=== PATIENT | female | born 1955 | race Caucasian/White ===

== ENCOUNTER 2022-07-20 09:01 | Outpatient (RCR) | payer MEDICARE, SELFPAY ==
--- NOTE | 2022-06-20 07:46 | URNOTE ---
Received request for [employer] ([id number]). Per [facility] Medical Injectable drug authorization list, prior authorization is not required.
[2022-07-20 09:36] LABS: Albumin* 4.4 g/dL (3.3-5.0); Chloride* 106 mmol/L (96-114); Sodium* 143 mmol/L (135-149)
[2022-07-20 09:37] LABS: Potassium* 4.3 mmol/L (3.6-5.1)
[2022-07-20 09:39] LABS: Alanine Aminotransferase* 20 U/L (4-35); Alkaline Phosphatase* 87 U/L (40-150); Aspartate Amino Transferase* 21 U/L (12-35); Bilirubin Total* 0.9 mg/dL (0.1-1.5); Blood Urea Nitrogen* 17 mg/dL (7-30); Carbon Dioxide* 26 mmol/L (20-32); Creatinine* 0.7 mg/dL (0.5-1.5); Estimated Glomerular Filt Rate 95 ml/min; Glucose* 113 mg/dL (60-115); Total Protein* 7.2 g/dL (6.0-8.3)
[2022-07-20 09:40] LABS: Calcium* 9.5 mg/dL (8.4-10.6)
== END 2023-01-16 23:59 | disposition home or self-care (01) ==
LOC: CCIC 09:01
PROVIDERS: PCP Family Medicine; Referring Provider Family Medicine; Visit Provider Nurse Practitioner Family
DX: C50.911 Malignant neoplasm of unspecified site of right female breast (principal); Z17.0 Estrogen receptor positive status [ER+]; Z51.81 Encounter for therapeutic drug level monitoring; Z79.811 Long term (current) use of aromatase inhibitors; M85.80 Other specified disorders of bone density and structure, unspecified site
CPT/HCPCS: 36415; 80053; 99212; 99215

== ENCOUNTER 2022-08-01 09:01 | Outpatient (CLI) | payer MEDICARE, SELFPAY ==
--- NOTE | 2022-08-01 09:15 | CRLHL7_ITS ---
For Patients: As a result of the Cures Act, medical imaging exams and procedure reports are released immediately into your electronic medical record. You may view this report before your referring provider. If you have questions, please contact your health care provider. RIGHT BREAST ULTRASOUND, 08/01/2022 INDICATION: New onset palpable abnormality along the medial aspect of the RIGHT breast implant. History of RIGHT mastectomy and RIGHT axillary lymph node dissection. History of radiation therapy. Breast implant placed approximately 3 years ago. Follow-up. TECHNIQUE: Directed ultrasound of the superior all medial RIGHT breast implant. COMPARISON: No comparisons. FINDINGS: The breast implant does appear to be intact. There is some undulation of the breast implant capsule medially. No definite pericapsular calcification. No mass identified. These findings were discussed briefly with the patient. The patient will also undergo a chest CT today which may provide additional useful information. IMPRESSION: 1. RIGHT breast implant. No implant rupture. 2. No mass or abnormality along the superomedial or medial aspect of the RIGHT breast implant. These findings were discussed briefly with the patient. A lay language report of this examination will be provided to the patient. ACR not applicable. Dictated by: Rogelio Casper MD @08/01/2022 9:55:38 AM [email or web address] RD/Dictated by: Rogelio Casper MD @ 08/01/2022 9:55:00 AM (Electronically Signed)
--- NOTE | 2022-08-01 11:00 | CRLHL7_ITS ---
For Patients: As a result of the Century Cures Act, medical imaging exams and procedure reports are released immediately into your electronic medical record. You may view this report before your referring provider. If you have questions, please contact your health care provider. INDICATION: Monitoring of a high risk breast cancer with positive lymph node. TECHNIQUE: Contrast-enhanced chest CT. 75 cc nonionic Isovue-370 administered. COMPARISON : Correlation is made with a PET/CT scan from January 07, 2020. FINDINGS: Surgically absent right breast. Postsurgical change right axilla. There is a breast implant with an internal fold. No olivia implant lesion or mass. No thoracic lymphadenopathy. Possible biopsy clip left breast. The left breast is otherwise negative. The included thyroid gland is unremarkable. The trachea and mainstem bronchi are patent and clear. There is no evidence for thoracic lymphadenopathy. Curvilinear fibrosis and/or atelectasis right upper lobe of the lung likely postradiation in nature. Both lungs are otherwise clear. No pneumothoraces nodules or infiltrates. There are no pleural or pericardial effusions. Images of the upper abdomen demonstrate normal adrenal glands. No splenomegaly. No definite hydronephrosis although neither kidney is fully or optimally included. The visualized portion of the liver and gallbladder are unremarkable. The included skeleton is negative for lytic or blastic metastatic disease. There is no evidence for fractures. Mild degenerative change of the lower thoracic/upper lumbar spine. IMPRESSION: 1. Postsurgical change from a right mastectomy. Postsurgical change from right axillary lymph node dissection. Minor post radiation change right upper lobe of the lung. 2. No evidence for recurrent or metastatic disease in the chest. 3. The included skeleton is unremarkable except for mild degenerative change of the lower thoracic/upper lumbar spine. 4. No abnormality about the right breast implant. No subcutaneous nodule. Please note that all CT scans at this facility use dose modulation, iterative reconstruction, and/or weight-based dosing when appropriate to reduce radiation dose to as low as reasonably achievable. Dictated by Rogelio Casper MD @ 08/01/2022 11:10:32 AM (Electronically Signed)
--- NOTE | 2022-08-02 16:59 | ONC.NURNOTE ---
Patient called after Dr. Cleveland reviewed Right breast ultrasound and CT and let her know that both images showed no evidence of recurrent or metastatic breast cancer. Patient very relieved
== END 2022-08-01 09:02 | disposition home or self-care (01) ==
LOC: US 09:02
PROVIDERS: PCP Family Medicine; Visit Provider Nurse Practitioner Family
DX: N63.10 Unspecified lump in the right breast, unspecified quadrant (principal); R59.9 Enlarged lymph nodes, unspecified; Z85.3 Personal history of malignant neoplasm of breast; C50.919 Malignant neoplasm of unspecified site of unspecified female breast
CPT/HCPCS: 71260; 76642; Q9967

== ENCOUNTER 2023-03-07 13:28 | Outpatient (CLI) | payer MEDICARE, SELFPAY ==
--- NOTE | 2023-03-07 13:30 | CRLHL7_ITS ---
For Patients: As a result of the Century Cures Act, medical imaging exams and procedure reports are released immediately into your electronic medical record. You may view this report before your referring provider. If you have questions, please contact your health care provider. DXA BONE MINERAL DENSITY STUDY Current height (in): 67.0. Weight (lb): 190.0. Menopause age: 52. Ethnicity: White. Reason for exam: Osteopenia. History of breast cancer. 1. Have you had a previous hip or vertebral fracture? No. 2. Have you had any fractures during your adult life which did not result from significant trauma (e.g., auto accident)? No. 3. Did either of your parents have a hip fracture? No. 4. Do you smoke? No. 5. Have you ever taken Glucocorticoids? No. 6. Do you have rheumatoid arthritis? No. 7. Do you have secondary osteoporosis? No. 8. Do you drink 3 or more alcoholic drinks per day? No. 9. Are you being treated for osteoporosis? No. 10. Have you ever taken any of the following medications: Actonel, Evista, Fosamax, Miacalcin, Reclast, Boniva, Forteo, HRT (i.e. estrogen/hormone therapy), Protelos, Prolia, Vitamin D, Calcium, other ??? please specify. ANSWER: Yes, vitamin D, calcium. 11. Do you have any of the following medical conditions: Anorexia or bulimia, asthma or emphysema, end stage renal disease, hyperparathyroidism, any seizure disorders, cancer, inflammatory bowel diseases, hysterectomy, other ??? please specify. ANSWER: Yes, cancer. 12. What was your maximum height (inches)? 67. 13. Do you perform weight bearing exercise regularly? No. 14. Do you regularly consume dairy products? No. 15. Do you drink caffeinated beverages? Yes. 16. At what age did your period start? 13. 17. Are you premenopausal? No. 18. How many full term pregnancies have you had? 1. 19. Have you ever missed your period for more than 6 months in a row (not including or menopause)? No. TECHNIQUE: Bone mineral density study was performed using the [employer]. FINDINGS: The results of the study expressed as bone mineral density (BMD) are as follows: Lumbar spine L1 to L4: BMD: 1.047 g/cm2. T-score: 0.0. Z-score: 2.0. Neck Left: BMD: 0.666 g/cm2. T-score: -1.6. Z-score: 0.0. Right: BMD: 0.719 g/cm2. T-score: -1.2. Z-score: 0.5. Total Left: BMD: 0.781 g/cm2. T-score: -1.3. Z-score: 0.1. Right: BMD: 0.812 g/cm2. T-score: -1.1. Z-score: 0.3. IMPRESSION: Osteopenia. *Comparison exams done prior to 02/2020 were performed on different unit, [employer]. COMPARISON: Compared with scan of 12/21/2020, the bone mineral density has increased by 2.5 percent at the spine. No change in the hips. FRAX 10-year Fracture Risk Major Osteoporotic Fracture: 9.6 percent Hip Fracture: 1.3 percent Reported Risk Factors: [place] () Neck BMD = 0.666, BMI = 29.8 Alvin Damon M.D. Diagnostic Radiologist [email or web address] Transcribed: 9:30 am DW/Dictated by: Alvin Damon MD @ 03/08/2023 6:28:00 AM (Electronically Signed)
== END 2023-03-07 13:29 | disposition home or self-care (01) ==
LOC: RAD 13:28
PROVIDERS: PCP Family Medicine; Visit Provider Nurse Practitioner Family
DX: M85.80 Other specified disorders of bone density and structure, unspecified site (principal); Z51.81 Encounter for therapeutic drug level monitoring; Z79.811 Long term (current) use of aromatase inhibitors
CPT/HCPCS: 77080

== ENCOUNTER 2023-03-28 07:55 | Outpatient (CLI) | payer MEDICARE, SELFPAY ==
--- NOTE | 2023-03-28 08:15 | CRLHL7_ITS ---
For Patients: As a result of the Century Cures Act, medical imaging exams and procedure reports are released immediately into your electronic medical record. You may view this report before your referring provider. If you have questions, please contact your health care provider. BILATERAL SCREENING MAMMOGRAM WITH COMPUTER-AIDED DETECTION AND TOMOSYNTHESIS TECHNIQUE: CC and MLO views were obtained. These mammographic images have been obtained using full-field digital technique. These mammographic images were interpreted with the benefit of computer-aided detection. Breast Tomosynthesis was used in this interpretation. COMPARISON FILM: 02/01/22, 12/21/20, 11/27/19. FINDINGS: The breasts are heterogeneously dense, which may obscure small masses IMPRESSION: There is no radiographic evidence for malignancy. ASSESSMENT: BI-RADS Category 2: Benign RECOMMENDATION: Routine screening mammogram in 1 year. A lay language report of this examination will be provided to the patient. Alvin Damon M.D. Diagnostic Radiologist [email or web address] LANCE/ronel Transcribed: 5:04 p.suleman rodney/Dictated by: Alvin Damon MD @ 03/28/2023 12:56:00 PM (Electronically Signed)
== END 2023-03-28 07:56 | disposition home or self-care (01) ==
LOC: MAMMO 07:55
PROVIDERS: PCP Family Medicine; Visit Provider Nurse Practitioner Family
DX: Z12.31 Encounter for screening mammogram for malignant neoplasm of breast (principal); R92.2 Inconclusive mammogram
CPT/HCPCS: 77063; 77067

== ENCOUNTER 2023-04-08 09:53 | Outpatient (RCR) | payer MEDICARE, SELFPAY ==
--- NOTE | 2023-02-05 16:06 | ONC.NURNOTE ---
Patient called office stating that her pharmacy has been trying to get ahold of us to refill her letrozole. No refill requests were found, but request was placed with [employer] to address tomorrow since oncologist is done for the day. Patient aware. She is also questioning her need for a dexa scan, there is an order in the computer so patient was instructed to talk with radiology to get this scheduled. She scheduled her mammogram for in March/t . Her 6 month follow up was scheduled two months late so that her mammo can be reviewed per her request. Patient scheduled for 04/08/2023.
== END 2023-10-05 23:59 | disposition home or self-care (01) ==
LOC: CCIC 09:53
PROVIDERS: PCP Family Medicine; Referring Provider Family Medicine; Visit Provider Internal Medicine Hematology & Oncology
DX: C50.911 Malignant neoplasm of unspecified site of right female breast (principal); Z17.0 Estrogen receptor positive status [ER+]; Z79.811 Long term (current) use of aromatase inhibitors; M85.80 Other specified disorders of bone density and structure, unspecified site; Z90.11 Acquired absence of right breast and nipple
CPT/HCPCS: 99212; 99214

== ENCOUNTER 2023-10-14 10:14 | Outpatient (RCR) | payer MEDICARE, SELFPAY | END 2024-04-11 23:59 | disposition home or self-care (01) | LOC: CCIC 10:14 | PROVIDERS: PCP Family Medicine; Referring Provider Family Medicine; Visit Provider Physician Assistant | DX: C50.911 Malignant neoplasm of unspecified site of right female breast (principal); Z17.0 Estrogen receptor positive status [ER+]; Z79.811 Long term (current) use of aromatase inhibitors; Z90.11 Acquired absence of right breast and nipple; M85.80 Other specified disorders of bone density and structure, unspecified site | CPT/HCPCS: 99214; G0463 ==

== ENCOUNTER 2024-06-05 11:14 | Outpatient (CLI) | payer MEDICARE, SELFPAY ==
--- OUTSIDE RECORDS SUMMARY | 2024-06-05 11:17 | XMS_ITS | Clinical Summary ---
Author Organization [facility] Address [place], [place] [address] Care Team Providers Care Sales Center Manager Name Role Phone Marla Islas MD Primary Care Provider + Allergies Active Allergy Reactions Criticality Noted Date Comments Adhesive Rash 07/03/2019 Latex *Unknown 07/03/2019 Sulfa (Sulfonamide Antibiotics) *Unknown 06/23 Medications Medication Sig Dispensed Refills Start Date End Date Status letrozole (FEMARA) 2.5 mg tablet Take 2.5 mg by mouth once daily. Active Social History Tobacco Use Types Packs/Day Years Used Date Smoking Tobacco: Never Assessed Sex and Gender Information Value Date Recorded Sex Assigned at Not on file Gender Identity Not on file Sexual Orientation Not on file Obstetrics History Last Filed Vital Signs Vital Sign Reading Time Taken Comments Blood Pressure 141/74 07/13/2019 12:45 PM CDT Pulse 61 07/13/2019 12:45 PM CDT Temperature 36.6 ??C (97.9 ??F) 07/13/2019 9:33 AM CD T Respiratory Rate 16 07/13/2019 12:45 PM CDT Oxygen Saturation 99% 07/13/2019 12:45 PM CDT Inhaled Oxygen Concentration - - Weight - - Height - - Body Mass Index - - Plan of Treatment Health Maintenance Due Date Last Done Comments Tdap 1966 Depression screening for age 12+ 1967 BMI (ht and wt on same day) for age 18+ 1973 Hepatitis C screening for age 18-79 1973 Tetanus booster 1975 Colonoscopy through age 75 2000 Lipids for age 45-75 2000 Mammogram for age 45-75 2000 Zoster (shingles) series for age 50+ (1 of 2) 04/04/20 05 DEXA/DXA scan for age 65+ 2020 Pneumococcal series for age 65+ (1 of 1 - PCV) 020 COVID-19 vaccine series (1 - 2022- season) 4 Influenza for age 65+ 05/24/2024 Care Teams Sales Center Manager Relationship Specialty Start Date End Date Marla Islas MD [address] [id number] PCP - General Family Practice 12/02/18
--- NOTE | 2024-06-05 11:30 | CRLHL7_ITS ---
For Patients: As a result of the Century Cures Act, medical imaging exams and procedure reports are released immediately into your electronic medical record. You may view this report before your referring provider. If you have questions, please contact your health care provider. LEFT SCREENING MAMMOGRAM WITH COMPUTER-AIDED DETECTION AND TOMOSYNTHESIS TECHNIQUE: CC and MLO views were obtained. These mammographic images have been obtained using full-field digital technique. These mammographic images were interpreted with the benefit of computer-aided detection. Breast Tomosynthesis was used in this interpretation. COMPARISON FILM: 03/28/23, 02/01/22, 12/21/20. FINDINGS: The breast is heterogeneously dense, which may obscure small masses IMPRESSION: There is no radiographic evidence for malignancy. ASSESSMENT: BI-RADS Category 2: Benign RECOMMENDATION: Routine screening mammogram in 1 year. A lay language report of this examination will be provided to the patient. Alvin Damon M.D. Diagnostic Radiologist [email or web address] LANCE/kd R: 06/05/2024 Transcribed: 11:25 a.m. TIM/Dictated by: Alvin Damon MD @ 06/05/2024 11:51:00 AM (Electronically Signed)
== END 2024-06-05 11:15 | disposition home or self-care (01) ==
LOC: MAMMO 11:15
PROVIDERS: PCP Family Medicine; Visit Provider Family Medicine
DX: Z12.31 Encounter for screening mammogram for malignant neoplasm of breast (principal); R92.2 Inconclusive mammogram
CPT/HCPCS: 77063; 77067

== ENCOUNTER 2024-10-28 09:31 | Outpatient (CLI) | payer MEDICARE, SELFPAY ==
--- NOTE | 2024-10-28 10:00 | CRLHL7_ITS ---
For Patients: As a result of the Century Cures Act, medical imaging exams and procedure reports are released immediately into your electronic medical record. You may view this report before your referring provider. If you have questions, please contact your health care provider. INDICATION: Breast cancer. TECHNIQUE: CT chest with 75 cc Omnipaque 370 IV contrast. Multiplanar reformats with axial MIP reconstructions. COMPARISON: CT chest 08/01/2022. FINDINGS: Lungs and pleura: Unchanged right upper lobe scarring. No pulmonary nodule or mass. No consolidation. No pleural effusion or pneumothorax. Heart and vasculature: No cardiomegaly or pericardial effusion. No thoracic aortic aneurysm. Main pulmonary artery normal in caliber. Lymph nodes/mediastinum: No suspicious lymphadenopathy. Chest wall: Right-sided breast implant. No chest wall mass or fluid collection. Upper abdomen: No acute abnormality. Colonic diverticulosis. Bones: No acute or suspicious abnormality. IMPRESSION: 1. No CT evidence of disease recurrence or metastatic disease. 2. No acute intrathoracic pathology. Please note that all CT scans at this facility use dose modulation, iterative reconstruction, and/or weight-based dosing when appropriate to reduce radiation dose to as low as reasonably achievable. Dictated by Dustin Boyd MD @ 10/28/2024 3:19:53 PM (Electronically Signed)
[2024-10-28 10:14] LABS: Creatinine* 0.8 mg/dL (0.5-1.5); Estimated Glomerular Filt Rate 80 ml/min
--- NOTE | 2024-10-28 10:15 | CRLHL7_ITS ---
For Patients: As a result of the Century Cures Act, medical imaging exams and procedure reports are released immediately into your electronic medical record. You may view this report before your referring provider. If you have questions, please contact your health care provider. INDICATION: Upper right arm lump TECHNIQUE: Roland-scale and color-flow Doppler ultrasound examination of the upper right arm lump. COMPARISON: None. FINDINGS: At the site of the upper right arm lump is a nonspecific 1.0 x 0.9 x 0.6 cm cystic structure adjacent to a vessel. IMPRESSION: Nonspecific 1.0 x 0.9 x 0.6 cm cystic structure site of the upper right arm lump Dictated by Magdiel Parker MD @ 10/28/2024 3:02:05 PM (Electronically Signed)
== END 2024-10-28 09:32 | disposition home or self-care (01) ==
LOC: CT 09:32
PROVIDERS: PCP Family Medicine; Visit Provider Internal Medicine Hematology & Oncology
DX: C50.919 Malignant neoplasm of unspecified site of unspecified female breast (principal); R22.31 Localized swelling, mass and lump, right upper limb
CPT/HCPCS: 36415; 71260; 76882; 82565; Q9967

== ENCOUNTER 2024-12-17 09:50 | Outpatient (RCR) | payer MEDICARE, SELFPAY ==
--- NOTE | 2024-11-03 13:13 | ONC.NURNOTE ---
Dr. Lizarraga called pt with CT and ultrasound results. Media Developer left message with pt to schedule follow up with Brie Tapia PA-C, then pt to be seen annually.
== END 2025-03-29 23:59 | disposition home or self-care (01) ==
LOC: CCIC 09:50
PROVIDERS: PCP Family Medicine; Visit Provider Physician Assistant
DX: C50.911 Malignant neoplasm of unspecified site of right female breast (principal); Z17.0 Estrogen receptor positive status [ER+]; M85.80 Other specified disorders of bone density and structure, unspecified site; I78.1 Nevus, non-neoplastic; Z79.811 Long term (current) use of aromatase inhibitors; Z90.11 Acquired absence of right breast and nipple
CPT/HCPCS: 99214; G0463

== ENCOUNTER 2025-06-16 13:18 | Outpatient (CLI) | payer MEDICARE, SELFPAY ==
--- NOTE | 2025-06-16 13:40 | CRLHL7_ITS ---
For Patients: As a result of the Century Cures Act, medical imaging exams and procedure reports are released immediately into your electronic medical record. You may view this report before your referring provider. If you have questions, please contact your health care provider. INDICATION: UNILATERAL LEFT SCREENING MAMMOGARM, ASYMPTOMATIC 70 Y/O FEMALE COMPARISON: 06/05/2024, 03/28/2023, 08/01/2022 TECHNIQUE: Digital mammogram in CC and MLO projections including computer-aided detection (CAD) and tomosynthesis. BREAST COMPOSITION: There are scattered areas of fibroglandular density. FINDINGS: No suspicious findings. ASSESSMENT: BI-RADS 2 Benign RECOMMENDATION: Annual screening mammogram. A lay language report of this examination will be provided to the patient. Dictated by: Allegra Garcia MD @ 06/17/2025 21:00:44 (Electronically Signed)
--- NOTE | 2025-06-16 14:00 | CRLHL7_ITS ---
For Patients: As a result of the Century Cures Act, medical imaging exams and procedure reports are released immediately into your electronic medical record. You may view this report before your referring provider. If you have questions, please contact your health care provider. DXA BONE MINERAL DENSITY STUDY Current height (in): 67. Weight (lb): 208. Menopause age: 52. Ethnicity: White. 1. Have you had a previous hip or vertebral fracture? No. 2. Have you had any fractures during your adult life which did not result from significant trauma (e.g., auto accident)? No. 3. Did either of your parents have a hip fracture? No. 4. Do you smoke? No. 5. Have you ever taken Glucocorticoids? No. 6. Do you have rheumatoid arthritis? No. 7. Do you have secondary osteoporosis? No. 8. Do you drink 3 or more alcoholic drinks per day? No. 9. Are you being treated for osteoporosis? No. 10. Have you ever taken any of the following medications: Actonel, Evista, Fosamax, Miacalcin, Reclast, Boniva, Forteo, HRT (i.e. estrogen/hormone therapy), Protelos, Prolia, Vitamin D, Calcium, other ??? please specify. ANSWER: Yes, Vitamin D, and Calcium. 11. Do you have any of the following medical conditions: Anorexia or bulimia, asthma or emphysema, end stage renal disease, hyperparathyroidism, any seizure disorders, cancer, inflammatory bowel diseases, hysterectomy, other ??? please specify. ANSWER: Yes, Cancer (breast). 12. What was your maximum height (inches)? 67. 13. Do you perform weight bearing exercise regularly? No. 14. Do you regularly consume dairy products? Yes. 15. Do you drink caffeinated beverages? Yes 16. At what age did your period start? 13. 17. Are you premenopausal? No. 18. How many full term pregnancies have you had? 1. 19. Have you ever missed your period for more than 6 months in a row (not including or menopause)? No. TECHNIQUE: Bone mineral density study was performed using the [employer]. FINDINGS: The results of the study expressed as bone mineral density (BMD) are as follows: Lumbar spine L1 to L4: BMD: 0.976 g/cm2. T-score: -0.6. Z-score: 1.5. Neck Left: BMD: 0.627 g/cm2. T-score: -2.0. Z-score: -0.2. Right: BMD: 0.719 g/cm2. T-score: -1.2. Z-score: 0.6. Total Left: BMD: 0.784 g/cm2. T-score: -1.3. Z-score: 0.2. Right: BMD: 0.779 g/cm2. T-score: -1.3. Z-score: 0.2. IMPRESSION: Osteopenia. COMPARISON: Compared with scan of 03/07/2023, the bone mineral density has decreased by 5.7 percent at the spine and decreased by 0.9 percent at the hip. Compared with scan of 12/21/2020, the bone mineral density has increased by 1.3 percent at the spine and decreased by 0.9 percent at the hip. FRAX 10-year Fracture Risk Major Osteoporotic Fracture: 11 percent Hip Fracture: 2.0 percent Reported Risk Factors: [place] () Neck BMD=0.627 BMI=32.6 Alvin Damon M.D. Diagnostic Radiologist [email or web address] LANCE/cammie DW/Dictated by: Alvin Damon MD @ 06/18/2025 11:24:00 AM (Electronically Signed)
== END 2025-06-16 13:19 | disposition home or self-care (01) ==
LOC: MAMMO 13:18
PROVIDERS: PCP Family Medicine; Visit Provider Family Medicine
DX: Z12.31 Encounter for screening mammogram for malignant neoplasm of breast (principal); M85.89 Other specified disorders of bone density and structure, multiple sites; Z79.811 Long term (current) use of aromatase inhibitors
CPT/HCPCS: 77063; 77067; 77080